=== PATIENT | female | born 1975 | race Caucasian/White ===

== ENCOUNTER 2018-11-03 07:34 | Emergency (ER) | payer MEDICAID, OTHER ==
[2018-11-03] MEDS ORDERED: Ondansetron 4 MG/2 ML SDV IVPUSH ONE ×2 (08:07→11:00)
--- NOTE | 2018-11-03 08:08 | EDM.PDOC ---
ED HPI GENERAL MEDICAL PROBLEM - General Chief Complaint: Abdominal Pain Stated Complaint: VOMITING, DIZZY Time Seen by Provider: 11/03/18 08:08 Source of Information: Reports: Patient History Limitations: Reports: No Limitations - History of Present Illness INITIAL COMMENTS - FREE TEXT/NARRATIVE: pt has been ill since . She has been hot and cold but she has not checked her temp. She has been coughing alot. The cough started first but then she got nauseated and started to vomit. She at this point his not holding anything down. She is having generalized abdomanal pain. Onset: Other ( started . 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 ) HEENT: Reports: No Symptoms Respiratory: Reports: No Symptoms Cardiovascular: Reports: No Symptoms Endocrine: Reports: No Symptoms GI/Abdominal: Reports: Abdominal Pain, Other (pt has generalized abdomanal pain) Musculoskeletal: Reports: Other ( generalized muascle pain. ) Skin: Reports: No Symptoms ED EXAM, GI/ABD - Physical Exam Exam: See Below Text/Narrative:: pt arrived with generalized abdomanal pain. She has been coughing alot. She is vomiting. She feels like at times she coughes until she vomits. She has been hot and cold but she has not checked her temp. Exam Limited By: No Limitations General Appearance: Alert, Anxious, Mild Distress, Other (pt looks unciomfortabe ) Ears: Normal TMs Nose: Normal Inspection Throat/Mouth: Normal Inspection Head: Atraumatic Neck: Normal Inspection Respiratory/Chest: No Respiratory Distress Cardiovascular: Regular Rate, Rhythm GI/Abdominal Exam: Other (pt is diffusely tender. ) (Female) Exam: Deferred Rectal (Female) Exam: Deferred Back Exam: Normal Inspection Extremities: Normal Inspection Neurological: Alert, Oriented, Normal Cognition Psychiatric: Anxious Course - Vital Signs Last Recorded V/S: Last Vital Signs Temp 36.3 C 11/03/18 07:50 Pulse 93 11/03/18 07:50 Resp 17 11/03/18 07:50 BP 128/72 11/03/18 07:50 Pulse Ox 94 L 11/03/18 07:50 - Orders/Labs/Meds Orders: Active Orders 24 hr Category Date Time Status UA W/MICROSCOPIC [URIN] Urgent Lab 11/03/18 07:58 Ordered Labs: Laboratory Tests 11/03/18 11/03/18 11/03/18 Range/Units 08:11 08:11 08:11 WBC 6.3 (4.5-11.0) K/uL RBC 5.04 (3.30-5.50) M/uL Hgb 14.5 (12.0-15.0) g/dL Hct 43.3 (36.0-48.0) % MCV 86 (80-98) fL MCH 29 (27-31) pg MCHC 34 (32-36) % Plt Count 342 (150-400) K/uL Neut % (Auto) 46 (36-66) % Lymph % (Auto) 31 (24-44) % Schuyler % (Auto) 22 H (2-6) % Eos % (Auto) 0 L (2-4) % Baso % (Auto) 1 (0-1) % Sodium 139 L (140-148) mmol/L Potassium 3.5 L (3.6-5.2) mmol/L Chloride 102 (100-108) mmol/L Carbon Dioxide 22 (21-32) mmol/L Anion Gap 18.5 H (5.0-14.0) mmol/L BUN 12 (7-18) mg/dL Creatinine 0.7 (0.6-1.0) mg/dL Est Cr Clr Drug Dosing 75.97 mL/min Estimated GFR (MDRD) > 60 (>60) Glucose 92 (74-106) mg/dL Calcium 8.8 (8.5-10.1) mg/dL Total Bilirubin 0.3 (0.2-1.0) mg/dL AST 30 (15-37) U/L ALT 30 (12-78) U/L Alkaline Phosphatase 83 (46-116) U/L C-Reactive Protein 2.74 H (0.0-0.3) mg/dL Total Protein 7.8 (6.4-8.2) g/dL Albumin 3.3 L (3.4-5.0) g/dL Globulin 4.5 H (2.3-3.5) g/dL Albumin/Globulin Ratio 0.7 L (1.2-2.2) Lipase 78 (73-393) U/L Meds: Medications Discontinued Medications Generic Name Dose Route Start Last Admin Trade Name Freq PRN Reason Stop Dose Admin Benzonatate 200 mg 11/03/18 10:36 11/03/18 10:46 Tessalon Perles PO 11/03/18 10:37 200 mg ONETIME ONE Administration Sodium Chloride 1,000 mls @ 999 mls/hr 11/03/18 08:15 11/03/18 08:15 Normal Saline IV 999 mls/hr ASDIRECTED ARSH Administration Sodium Chloride 1,000 mls @ 999 mls/hr 11/03/18 09:30 11/03/18 09:51 Normal Saline IV 999 mls/hr ASDIRECTED ARSH Administration Ondansetron HCl 4 mg 11/03/18 08:07 11/03/18 08:14 Zofran IVPUSH 11/03/18 08:08 4 mg ONETIME ONE Administration Ondansetron HCl 4 mg 11/03/18 11:00 11/03/18 11:16 Zofran IVPUSH 11/03/18 11:01 4 mg ONETIME ONE Administration - Re-Assessments/Exams Free Text/Narrative Re-Assessment/Exam: 11/03/18 08:52 influ was neg. Her wbc is low looking like a flu. Her influ is neg. She has a normal lipase. 11/03/18 12:01 pt is toleratinmg water at this point. Departure - Departure Time of Disposition: 12:02 Disposition: Home, Self-Care 01 Condition: Fair Clinical Impression: Flu syndrome, Dehydration - Discharge Information Instructions: Influenza, Adult, [id number], Dehydration, Adult, [id number] Referrals: PCP,None [Primary Care Provider] - Forms: ED Department Discharge Care Plan Goals: clear liquid diet, encourage fluids, zoforan 4 mg q6h prn for nausea--subling, zithromax--z pack, tesslon perles 100mg q6h as needed for a cough. Pt sjleslield get a bottle of mag citrate and try to get her bowels opened up. - My Orders Last 24 Hours: My Active Orders 11/03/18 07:58 UA W/MICROSCOPIC [URIN] Urgent - Assessment/Plan Last 24 Hours: My Active Orders 11/03/18 07:58 UA W/MICROSCOPIC [URIN] Urgent
[2018-11-03] MEDS ORDERED: Sodium Chloride 0.9% 1,000 ML IV SCH ×2 (08:15→09:30)
--- NOTE | 2018-11-03 10:34 | CRLCR ---
Indication: Pain Technique: Chest and abdomen 5 view. Comparison: None. Findings: Chest: Heart size and pulmonary vasculature are normal. Lungs and pleural spaces are clear except for a single band of left perihilar atelectasis or scarring. Bowel: Bowel pattern is normal. Soft tissues: No sign of free air. No sign of soft tissue mass. No suspicious calcifications. Bones: Unremarkable for age. Impression: Unremarkable chest and abdomen. Dictated by Lalito Donovan MD @ 11/03/2018 10:33:20 AM Dictated by: Lalito Donovan MD @ 11/03/2018 10:33:27 (Electronically Signed)
[2018-11-03] MEDS ORDERED: Benzonatate 100 MG Cap PO ONE (10:36)
== END 2018-11-03 12:15 | disposition home or self-care (01) ==
LOC: JP.ED 07:34
DX: J11.1 Influenza due to unidentified influenza virus with other respiratory manifestations (principal); E86.0 Dehydration; F17.210 Nicotine dependence, cigarettes, uncomplicated
CPT/HCPCS: 36415; 74022; 80053; 83690; 85025; 86140; 87804; 96361; 96374; 96376; 99284; A9270; J2405; J7030

== ENCOUNTER 2018-12-12 15:51 | Emergency (ER) | payer SELFPAY ==
[2018-12-12] MEDS ORDERED: Ketorolac 30 MG/ML SDV IVPUSH ONE (16:27)
[2018-12-12] MEDS ORDERED: Sodium Chloride 0.9% 10 ML Syringe FLUSH PRN (16:27)
[2018-12-12] MEDS ORDERED: Sodium Chloride 0.9% 80 ML IV ONE (16:31)
[2018-12-12] MEDS ORDERED: Sodium Chloride 0.9% 10 ML Syringe FLUSH ONE (16:31)
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
[2018-12-12] MEDS ORDERED: Iopamidol 612 MG/ML 100 ML Bottle IV SCH (16:45)
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
== END 2018-12-12 18:21 | disposition home or self-care (01) ==
LOC: JP.ED 15:51
DX: S80.11XA Contusion of right lower leg, initial encounter (principal); S80.12XA Contusion of left lower leg, initial encounter; S20.219A Contusion of unspecified front wall of thorax, initial encounter; V89.2XXA Person injured in unspecified motor-vehicle accident, traffic, initial encounter
CPT/HCPCS: 71260; 73590; 99285; J7030; Q9967